=== PATIENT | female | born 1990 | race Caucasian/White ===

== ENCOUNTER 2016-09-20 23:02 | Emergency (ER) | payer MEDICAID, OTHER ==
[~2016-09-20] VITALS: Ht 160 cm; Wt 108.0 kg
[~2016-09-20 23:02] MED LIST: ACET500C5 PO; ALBU18HF INHALATION; CEPH-443 PO; NO MEDS
[2016-09-20 23:04] VITALS: Ht 160 cm; Wt 108.0 kg
[2016-09-21] MEDS ORDERED: ALBUTEROL 0.5% (NEB) 2.5 MG/0.5 ML AMP NEB STA (00:27)
[2016-09-21] MEDS ORDERED: IPRATROPIUM (NEB) 0.5 MG/2.5 ML AMP NEB STA (00:27)
--- NOTE | 2016-09-21 00:33 | ERD ---
ER Documentation Chief Complaint Date/Time DATE: 09/21/16 TIME: 00:32 Chief Complaint cough x 3 weeks HPI 26-year-old female presents to emergency department for complaints of cough for 3 weeks. Patient has been having dry cough, and does not cough up any phlegm or blood. Patient has been having episodes of wheezing. Patient denies any fever or chills. Patient sick contacts. Patient denies any chest pain or palpitations. Patient has an inhaler at home, albuterol, which helps the symptoms but ran out of it. ROS All systems reviewed and are negative except as per history of present illness. Medications Home Meds Active Scripts Albuterol Sulfate* (Ventolin HFA*) 18 Gm Hfa.aer.ad, 2 PUFF INHALATION Q4H, #1 INHALER Prov:NEERAJ KHAN. 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 12/12/15 Acetaminophen* (Tylophen*) 500 Mg Capsule, 1 CAP PO Q6H Y for PAIN AND OR ELEVATED TEMP, #20 CAP Prov:GILBERT ALMONET 02/27/15 Cephalexin* (Keflex*) 500 Mg Capsule, 500 MG PO BID DIURETICS for 7 Days, CAP Prov:GILBERT ALMONTE 02/27/15 Reported Medications [No Meds] No Conflict Check 01/17/13 Allergies Allergies: Coded Allergies: No Known Allergy (Unverified , 09/10/14) PMhx/Soc History of Surgery: No Anesthesia Reaction: No Hx Neurological Disorder: No Hx Respiratory Disorders: Yes (ASTHMA) Hx Cardiac Disorders: No Hx Psychiatric Problems: No Hx Alcohol Use: No Hx Substance Use: No Hx Tobacco Use: No FmHx Family History: No coronary disease, No diabetes, No other Physical Exam Vitals Vital Signs Date Time Temp Pulse Resp B/P Pulse Ox O2 Delivery O2 Flow Rate FiO2 09/21/16 00:40 85 20 96 21 09/20/16 23:04 99.2 100 20 157/82 96 Physical Exam GENERAL: The patient is well developed and appropriate for usual state of health, in no apparent distress. CHEST: Diffuse wheezing bilaterally. There are no rales, crackles or rhonchi. HEART: Regular rate and rhythm. No murmurs, clicks, rubs or gallops. No S3 or S4. ABDOMEN: Soft, nontender and nondistended. Good bowel sounds. No rebound or guarding. No gross peritonitis. No gross organomegaly or masses. No Ghotra sign or McBurney point tenderness. BACK: No midline or flank tenderness. EXTREMITIES: Equal pulses bilaterally. There is no peripheral clubbing, cyanosis or edema. No focal swelling or erythema. Full range of motion. Grossly neurovascularly intact. NEURO: Alert and oriented. Cranial nerves 2-12 intact. Motor strength in all 4 extremities with 5/5 strength. Sensation grossly intact. Normal speech and gait. SKIN: There is no apparent rash or petechia. The skin is warm and dry. HEMATOLOGIC AND LYMPHATIC: There is no evidence of excessive bruising or lymphedema. No gross cervical, axillary, or inguinal lymphadenopathy. Results 24 hrs Current Medications Medications (Trade) Dose Ordered Sig/Lori Route PRN Reason Start Time Stop Time Status Last Admin Dose Admin Albuterol (Proventil 0.5% (Neb)) 10 mg ONCE STAT NEB 09/21/16 00:27 09/21/16 00:28 DC 09/21/16 00:40 Ipratropium [place] (Atrovent 0.02% (Neb)) 0.5 mg ONCE STAT NEB 09/21/16 00:27 09/21/16 00:28 DC 09/21/16 00:40 Breathing treatment of albuterol and Atrovent was given here in emergency department, after treatment, patient's lungs sounds are clear and patient's oxygenation is better. Patient verbalized feeling much better. PROCEDURE: CHEST - 1 VIEW CLINICAL INDICATION: 26-year-old female with shortness of breath and asthma exacerbation. TECHNIQUE: A single frontal AP semi-erect portable view of the chest was performed. The images were reviewed on a PACS workstation. COMPARISON: Chest x-ray September 11, 2014. FINDINGS: The cardiomediastinal silhouette has a normal appearance. There is no evidence for an infiltrate. The pulmonary vascularity is within normal limits. There is no evidence for pneumothorax or pneumomediastinum. The osseous structures are intact. IMPRESSION: No evidence for active cardiopulmonary disease. .Victorino Michael MD, Date Time Electronically viewed and signed by .Victorino Michael MD, MD on 09/21/2016:22 .M/ CC: GERRY OVERTON NP Procedures/MDM Medical Decision Making: Patient symptoms are most likely consistent with acute bronchitis with asthma exacerbation, which viral in origin. There is low suspicion for Pneumonia at this time since patients lungs sounds are clear, patient O2 saturation is normal and patient doesnt show any respiratory distress. Patients chest xray doesnt show infiltrates or any other cardiopulmonary emergencies at this time. There is low suspicion for other cardiopulmonary emergencies at this time such as CHF, Pulmonary Embolism, Pneumothorax, Aortic Aneurysm or any other cardiopulmonary emergencies at this time. There is low suspicion for sepsis. Patient appears well and is hemodynamically stable. Patient does not have any fever. Disposition: Home. Condition: Stable Prescriptions: Albuterol, prednisone, guaifenesin with codeine Zyrtec, ibuprofen Instructions: Patient is advised to take medications as prescribed. Patient is advised to rest. Patient advised to increase fluid intake, do humidifier at home and if possible, do salt water gargles. Patient is advised that if symptoms are worse, shortness of breath, uncontrolled fever, stridor, vomiting, worst signs and symptoms to return to emergency department immediately. Otherwise, patient is advised to follow up with primary doctor in 5-7 days. Departure Diagnosis: Primary Impression: Bronchitis Additional Impression: Asthma exacerbation Condition: Stable Patient Instructions: Bronchitis With Wheezing (Adult) Additional Instructions: Patient is advised to take medications as prescribed. Patient is advised to rest. Patient advised to increase fluid intake, do humidifier at home and if possible, do salt water gargles. Patient is advised that if symptoms are worse, shortness of breath, uncontrolled fever, stridor, vomiting, worst signs and symptoms to return to emergency department immediately. Otherwise, patient is advised to follow up with primary doctor in 5-7 days. GERRY OVERTON NP Sep 21, 2016 00:33
--- NOTE | 2016-09-21 01:22 | RADRPT ---
PROCEDURE: CHEST - 1 VIEW CLINICAL INDICATION: 26-year-old female with shortness of breath and asthma exacerbation. TECHNIQUE: A single frontal AP semi-erect portable view of the chest was performed. The images we re reviewed on a PACS workstation. COMPARISON: Chest x-ray September 11, 2014. FINDINGS: The cardiomediastinal silhouette has a normal appearance. There is no evidence for an infiltrate. T he pulmonary vascularity is within normal limits. There is no evidence for pneumothorax or pneumomed iastinum. The osseous structures are intact. IMPRESSION: No evidence for active cardiopulmonary disease. .Victorino Michael MD, MD Date Time Electronically viewed and signed by .Victorino Michael MD, on 09/21/2016 01:22 .[place]ay[place]/
[2016-09-21] MEDS ORDERED: PRED50TA PO (01:28)
[2016-09-21] MEDS ORDERED: CETI10CA PO (01:28)
[2016-09-21] MEDS ORDERED: ALBU8.5H3 INH (01:28)
[2016-09-21] MEDS ORDERED: GUAI473L22 PO (01:28)
[2016-09-21] MEDS ORDERED: IBUP-1542 PO (01:28)
== END 2016-09-21 02:01 | disposition home or self-care (01) ==
LOC: FTE 23:02
DX: J45.901 Unspecified asthma with (acute) exacerbation (principal)
CPT/HCPCS: 71010; 94644; Z7502; Z7610